=== PATIENT | female | born 1975 | race Caucasian/White ===

== ENCOUNTER 2017-11-30 10:21 | Day surgery (SDC) | payer OTHER ==
[2017-11-28 13:13] VITALS: BMI 28.3
[2017-11-30 11:12] VITALS: RESP 16; TEMP 97.6
[2017-11-30] MEDS: LACTATED RINGERS 1,000 ML IV SCH ×2 (11:18→12:24)
[2017-11-30] MEDS ORDERED: PROPOFOL 10 MG/ML 20 ML VIAL IV ONE (12:24)
[2017-11-30] MEDS ORDERED: LIDOCAINE 1% INJ 10MG/ML (20 ML MDV) ONE (12:24)
[2017-11-30] MEDS ORDERED: GLYCOPYRROLATE 0.2 MG/ML 2 ML VIAL ONE (12:24)
[2017-11-30 13:31] VITALS: BP 105/69
[2017-11-30 13:45] VITALS: PULSE 76
--- NOTE | 2017-12-11 15:10 | P.PCN ---
Date of Procedure: 11/30/17 Procedure(s) Performed: Procedures: 1. Esophagogastroduodenoscopy and biopsy. 2. Colonoscopy and biopsy and polypectomy. Preoperative diagnosis: Abdominal pain and rectal bleeding. Postoperative diagnosis: 1. Very small sliding hiatal hernia with no obvious esophagitis or complicated reflux disease. 2. Mild gastritis. 3. Multiple biopsies obtained from the duodenum, antrum and esophagus. 4. Sigmoid polyps snared, biopsied and spot injected to localize. Preparation: HalfLytely prep. Sedation: Was provided by anesthesia. Brief clinical history: The patient is a 42-year-old female who is scheduled for this evaluation because of abdominal pain and rectal bleeding. The purposes to rule out peptic ulcer disease or neoplasia. Procedure: With the patient on her left lateral decubitus position and after informed consent and adequate sedation, I passed the Olympus-GIF 160 video upper endoscope through the cricopharyngeus down the esophagus. There was a very small sliding hiatal hernia but no obvious esophagitis or complicated reflux disease. The endoscope was then passed into the stomach which was insufflated with air and inspected in detail including the retroflex view in the cardia. There was some mottling and erythema in the antrum but no ulcers or erosions. Pyloric channel, duodenal bulb, post bulbar area and descending duodenum appeared within normal limits. I obtained biopsies from the duodenum, antrum and esophagus then the endoscope was withdrawn and I proceeded with the colonoscopy. Perianal area did not show any fissures or fistulas. There were no masses felt on digital rectal examination. The Olympus CFQ 160L video colonoscope was then inserted in the rectum in the usual fashion and advanced to the cecum. There was a fleshy polyp in the sigmoid measuring around 2 cm on a short stalk that I biopsied initially, then I snared and retrieved by suctioning it to the tip of the endoscope and withdrawing the endoscope and restarting the exam. I localized the site by injecting spot in the usual fashion. The patient tolerated the procedure well and did not have any meat complications. Plan: We will await pathology results and make further plans based on her course and biopsy results.
== END 2017-11-30 13:50 | disposition home or self-care (01) ==
LOC: ORWHC2ENDO 10:21
DX: K29.50 Unspecified chronic gastritis without bleeding (principal); D12.5 Benign neoplasm of sigmoid colon; K62.5 Hemorrhage of anus and rectum; K44.9 Diaphragmatic hernia without obstruction or gangrene; K20.9 Esophagitis, unspecified; J45.909 Unspecified asthma, uncomplicated; Z79.899 Other long term (current) drug therapy; Z87.442 Personal history of urinary calculi; G43.909 Migraine, unspecified, not intractable, without status migrainosus
CPT/HCPCS: 81025; 88305; 45380; 45385; 43239; 45381; J2001; J2704

== ENCOUNTER 2018-01-04 06:16 | Inpatient (IN) | payer OTHER ==
[2017-12-27 16:05] VITALS: BMI 27.3
[~2018-01-04 06:16] MED LIST: DEXAMETHASONE SOD PHOSPHATE 10 MG/ML 1 ML VIAL IV ONE; HEPARIN SODIUM,PORCINE 5,000 UNIT/ML 1 ML VIAL SQ ONE; HYDROmorphone 1 MG/ML 1 ML SYRINGE IVP PRN; LIDOCAINE 1% 20 ML VIAL (10MG/ML) FOR IV START INTRADERMA PRN; MIDAZOLAM 2 MG/2 ML VIAL IV PRN; ONDANSETRON 4 MG/2 ML VIAL IVP ONE; fentaNYL (PF) 50 MCG/ML 2 ML AMP IV PRN
[2018-01-04] MEDS: LACTATED RINGERS 1,000 ML IV SCH (07:07)
[2018-01-04] MEDS ORDERED: fentaNYL (PF) 50 MCG/ML 2 ML AMP IVP ONE ×2 (07:18→09:30)
--- NOTE | 2018-01-04 07:51 | P.GSHP ---
History of Present Illness H&P Date: 01/04/18 Chief Complaint: Sigmoid colon polyp with high-grade dysplasia This is a 42-year-old female who presents today for low anterior section. Patient underwent colonoscopy by Dr. Thompson. Patient was found to have a sigmoid colon polyp with high-grade dysplasia. Patient presents today for low anterior resection. Patient with a risk of possible colostomy wound infection bleeding. The sigmoid colon was tattooed by Dr. Thompson at the time of her colonoscopy. Past Medical History Past Medical History: Asthma Additional Past Medical History / Comment(s): MIGRAINES, ASTHMA A CHILD, KIDNEY STONES., DIARRHEA FOR 1 1/2 YEARS, STATES BLOOD IN STOOL., STOMACH PAIN. , COLON POLYP (11/30/17) History of Any Multi-Drug Resistant Organisms: None Reported Additional Past Surgical History / Comment(s): KIDNEY STONES REMOVED., EGD & COLONOSCOPY Past Anesthesia/Blood Transfusion Reactions: No Reported Reaction, Motion Sickness Past Psychological History: No Psychological Hx Reported Smoking Status: Never smoker Past Alcohol Use History: Rare Past Drug Use History: None Reported - Past Family History Mother Family Medical History: No Reported History Medications and Allergies Home Medications Medication Instructions Recorded Confirmed Type Ibuprofen [Motrin] 800 mg PO TID PRN 11/28/17 12/27/17 History Magnesium Oxide 400 mg PO DAILY 11/28/17 01/04/18 History Promethazine [Phenergan] 25 mg PO DIRECTED PRN 11/28/17 01/04/18 History Topiramate [Topamax] 200 mg PO BID 11/28/17 12/27/17 History Butalb/APAP/Caff 50-325-40Mg 2 tab PO Q4H PRN 11/30/17 01/04/18 History [Fioricet 50-325-40] Potassium Chloride [K-Tab ER] 10 meq PO DAILY 11/30/17 01/04/18 History SUMAtriptan SUCC/NAPROXEN SOD 1 each PO DAILY PRN 11/30/17 01/04/18 History [Treximet 85-500 mg Tablet] Allergies Allergy/AdvReac Type Severity Reaction Status Date / Time No Known Allergies Allergy Verified 12/27/17 15:54 Surgical - Exam Vital Signs Temp Pulse Resp BP Pulse Ox 98.3 F 80 18 102/64 96 01/04/18 06:54 01/04/18 06:54 01/04/18 06:54 01/04/18 06:54 01/04/18 06:54 - General well developed, no distress - Eyes PERRL - ENT normal pinna - Neck no masses - Respiratory normal expansion - Cardiovascular Rhythm: regular - Abdomen Abdomen: soft, non tender Assessment and Plan Assessment: Sigmoid colon polyp with high-grade dysplasia. We'll perform low anterior resection.
[2018-01-04] MEDS ORDERED: SUCCINYLCHOLINE CHLORIDE 100 MG/5 ML SYR IV ONE (07:55)
[2018-01-04] MEDS ORDERED: NEOSTIGMINE 1 MG/ML 10 ML VIAL ONE (07:55)
[2018-01-04] MEDS ORDERED: fentaNYL (PF) 50 MCG/ML 2 ML AMP ONE (07:55)
[2018-01-04] MEDS ORDERED: PROPOFOL 10 MG/ML 20 ML VIAL IV ONE (07:55)
[2018-01-04] MEDS ORDERED: GLYCOPYRROLATE 0.2 MG/ML 2 ML VIAL ONE (07:55)
[2018-01-04] MEDS ORDERED: ROCURONIUM BROMIDE 10 MG/ML 10 ML VIAL IV ONE (07:55)
[2018-01-04] MEDS ORDERED: MIDAZOLAM 2 MG/2 ML VIAL ONE (07:55)
[2018-01-04] MEDS ORDERED: HYDROmorphone (PF) 1 MG/ML ONE (07:55)
[2018-01-04] MEDS ORDERED: NALOXONE 0.4 MG/ML 1 ML VIAL IV PRN (08:06)
[2018-01-04] MEDS: ceFAZolin IN SWFI 2 GM/20 ML SYRINGE IVP ONE ×2 (08:08→08:34)
[2018-01-04] MEDS: metroNIDAZOLE-NS PMX 500 MG in SALINE 1 100ML.BAG IVPB ONE ×2 (08:15→08:34)
[2018-01-04] MEDS ORDERED: LACTATED RINGERS 1,000 ML IV ONE ×3 (09:26→09:50)
[2018-01-04] MEDS: ROPIVACAINE 400 MG, HYDROMORPHONE (PF) 5 MG in SODIUM CHLORIDE 0.9% 170 ML EPIDURAL PRN ×2 (09:49→10:57)
[2018-01-04] MEDS ORDERED: ONDANSETRON 4 MG/2 ML VIAL IVP ONE (10:04)
[2018-01-04] MEDS: NALBUPHINE 10 MG/ML VIAL (10ML MDV) IV PRN ×3 (10:40→20:09)
[2018-01-04] MEDS ORDERED: BENZOCAINE/MENTHOL LOZENG 1 EACH LOZENGE MUCOUS MEM PRN (12:23)
[2018-01-04] MEDS ORDERED: METOCLOPRAMIDE 5 MG/ML 2 ML VIAL IVP PRN (12:23)
[2018-01-04] MEDS: ONDANSETRON 4 MG/2 ML VIAL IVP PRN (13:23)
[2018-01-04] MEDS: D5-0.45% NACL WITH KCL 20MEQ/L 1,000 ML IV SCH (15:40)
[2018-01-04] MEDS: HEPARIN SODIUM,PORCINE 5,000 UNIT/ML 1 ML VIAL SQ SCH (16:35)
[2018-01-04] MEDS: diphenhydrAMINE 50 MG/ML 1 ML VIAL IVP PRN (18:00)
[2018-01-04] MEDS: FAMOTIDINE 20 MG/2 ML VIAL IV SCH (20:12)
[2018-01-05] MEDS: D5-0.45% NACL WITH KCL 20MEQ/L 1,000 ML IV SCH ×4 (00:32→16:39)
[2018-01-05] MEDS: NALBUPHINE 10 MG/ML VIAL (10ML MDV) IV PRN ×2 (00:44→07:39)
[2018-01-05] MEDS: HEPARIN SODIUM,PORCINE 5,000 UNIT/ML 1 ML VIAL SQ SCH ×3 (00:49→15:23)
[2018-01-05] MEDS: diphenhydrAMINE 50 MG/ML 1 ML VIAL IVP PRN (02:07)
[2018-01-05] MEDS ORDERED: HYDROmorphone 2 MG TAB PO PRN (04:01)
[2018-01-05] MEDS ORDERED: HYDROmorphone 1 MG/ML 1 ML SYRINGE IVP PRN (04:07)
[2018-01-05] MEDS: LACTATED RINGERS 1,000 ML IV SCH (04:47)
[2018-01-05] MEDS ORDERED: HYDROmorphone 1 MG/ML 1 ML SYRINGE IM PRN (05:31)
--- NOTE | 2018-01-05 05:37 | P.PN ---
Progress Note - Text Progress Note Date: 01/05/18 Postoperative day # status post low anterior resection ,epidural catheter placed for postoperative analgesia, patient doing well epidural site okay, patient currently on combination of epidural infusion solution of Ropivacaine 0.0625% and Dilaudid 20 g per mL the infusion rate at 8 ml per hour , patient had no motor deficit epidural site okay , vital signs stable ,VAS 4/10 , she is receiving Dilaudid 0.5 mg for breakthrough pain every 1 hour when necessary Assessment and plan= post operative day #1 patient doing well ,pain well controlled , there is no anesthesia related complications
[2018-01-05] MEDS: FAMOTIDINE 20 MG/2 ML VIAL IV SCH ×2 (07:38→20:13)
[2018-01-05] MEDS: ALVIMOPAN 12 MG CAPSULE PO SCH ×2 (07:38→20:13)
[2018-01-05] MEDS: ONDANSETRON 4 MG/2 ML VIAL IVP PRN (08:37)
[2018-01-05] MEDS: HYDROmorphone 1 MG/ML 1 ML SYRINGE IVP PRN ×3 (09:00→20:13)
--- NOTE | 2018-01-05 13:35 | P.PN ---
Subjective Progress Note Date: 01/05/18 42-year-old seen in a postop visit January 05 underwent low anterior resection for sigmoid colon polyp with high-grade dysplasia currently is seen this morning sitting up in chair. Epidural in place patient states pain medication effective for pain control. Reports of nausea vomiting. Tolerating clear liquid diet. Passing no gas no stool prevena wound system in place Objective - Vital Signs Vital signs: Vital Signs Temp 98.6 F 01/05/18 07:17 Pulse 84 01/05/18 07:17 Resp 12 01/05/18 07:17 BP 92/58 01/05/18 07:17 Pulse Ox 95 01/05/18 07:17 Intake & Output 01/04/18 01/05/18 01/05/18 18:59 06:59 18:59 Intake Total 2879.5 1590 Output Total 265 2100 Balance 2614.5 -510 Weight 63.503 kg 63.503 kg Intake: IV 2879.5 Intake, IV Titration 1000 Amount D5-0.45% NaCl with KCl 1000 20Meq/l 1,000 ml @ 125 mls/hr IV .Q8H [facility] Rx#: [id number] Oral 590 Output: Urine 215 2100 Estimated Blood Loss 50 Other: Voiding Method Indwelling Catheter Indwelling Catheter - Exam Physical exam 42-year-old female sitting up in a chair appears in no acute distress Lungs adequate air movement bilaterally on room air Heart S1 and S2 audible regular Abdomen surgical tenderness appropriate not distended few hypoactive bowel tones indwelling Pina catheter in place no nausea no vomiting states not passing gas reports prevena wound system in place Extremities no edema Assessment and Plan Assessment: Impression Recent colonoscopy found to have a sigmoid colon polyp with high-grade dysplasia Postoperative low anterior resection January 04 for a sigmoid colon polyp Plan Continue postop surgical care Epidural per anesthesia for pain control Keep indwelling Pina catheter in place until epidural DC'd DVT and GI prophylaxis Clear liquid diet as tolerated Increase activity as tolerated Use of incentive spirometer Follow-up on path report The above impression and plan of care have been discussed and directed by signing physician. Zayda Mann nurse practitioner acting as scribe for signing physician.
[2018-01-05] MEDS: diphenhydrAMINE 25 MG CAP PO PRN (15:49)
[2018-01-06] MEDS: HEPARIN SODIUM,PORCINE 5,000 UNIT/ML 1 ML VIAL SQ SCH ×4 (00:09→23:09)
[2018-01-06] MEDS: diphenhydrAMINE 25 MG CAP PO PRN ×2 (00:09→15:40)
[2018-01-06] MEDS: ROPIVACAINE 400 MG, HYDROMORPHONE (PF) 5 MG in SODIUM CHLORIDE 0.9% 170 ML EPIDURAL PRN (01:28)
[2018-01-06] MEDS: D5-0.45% NACL WITH KCL 20MEQ/L 1,000 ML IV SCH ×3 (06:27→18:16)
[2018-01-06 07:38] LABS: Basophils % (A) 0 %; Eosinophils # (A) 0.1 k/uL (0-0.7); Eosinophils % (A) 1 %; HCT 39.6 % (34.0-46.0); HGB 13.1 gm/dL (11.4-16.0); Lymphocytes # (A) 2.5 k/uL (1.0-4.8); Lymphocytes % (A) 31 %; MCH 31.2 pg (25.0-35.0); MCHC 33.1 g/dL (31.0-37.0); MCV 94.4 fL (80.0-100.0); Mean Platelet Volume 6.6; Monocytes # (A) 0.6 k/uL (0-1.0); Monocytes % (A) 7 %; Neutrophils # (A) 4.6 k/uL (1.3-7.7); Neutrophils % (A) 58 %; Platelet Count 230 k/uL (150-450); WBC 7.9 k/uL (3.8-10.6)
[2018-01-06 07:53] LABS: ALT 28 U/L (9-52); AST 33 U/L (14-36); Albumin 3.3 g/dL (3.5-5.0); Alkaline Phosphatase 76 U/L (38-126); Anion Gap 5 mmol/L; Blood Urea Nitrogen 5 mg/dL (7-17); Carbon Dioxide 28 mmol/L (22-30); Chloride 105 mmol/L (98-107); Glucose 105 mg/dL (74-99); Potassium 4.4 mmol/L (3.5-5.1); Sodium 138 mmol/L (137-145); Total Bilirubin 0.4 mg/dL (0.2-1.3)
[2018-01-06] MEDS: FAMOTIDINE 20 MG/2 ML VIAL IV SCH ×2 (09:40→20:48)
[2018-01-06] MEDS: ALVIMOPAN 12 MG CAPSULE PO SCH ×2 (09:41→20:48)
--- NOTE | 2018-01-06 16:41 | P.PN ---
Subjective Progress Note Date: 01/06/18 CHIEF COMPLAINT: Status post low anterior resection HISTORY OF PRESENT ILLNESS: The patient is a 42-year-old female status post low anterior resection. She is postop day 2. She is tolerating liquids. She reports mechanical difficulties with her epidural which had leaked last night and this morning. Her pain is not well controlled. She is passing flatus. No bowel movements. PHYSICAL EXAM: GENERAL: Well-developed in no acute distress. HEENT: No sclera icterus. Extraocular movements grossly intact. Moist buccal mucosa. Head is atraumatic, normocephalic. Hears conversational speech. No nasal drainage. NECK: Supple without lymphadenopathy. CHEST: Non-labored respirations and equal bilateral excursions. CARDIOVASCULAR: 2+ radial pulses. Regular rate and regular rhythm ABDOMEN: Dressing clean dry and intact with wound VAC. No signs of infection. MUSCULOSKELETAL: No clubbing, cyanosis or edema. NEUROLOGIC: No focal or lateralizing signs. Cranial nerves II through XII grossly intact. PSYCH: Alert and oriented to person, place and time. SKIN: Well perfused. Good skin turgor. LABS: Reviewed ASSESSMENT: 1. Status post low anterior resection 2. Malignant colon polyp PLAN: 1. Recommend adjustment of epidural. 2. Pina catheter still present for epidural protocol 3. Start oral pain medications. 4. Advance diet Objective - Vital Signs Vital signs: Vital Signs Temp 98.2 F 01/06/18 08:40 Pulse 80 01/06/18 13:29 Resp 16 01/06/18 08:40 BP 105/70 01/06/18 13:29 Pulse Ox 94 L 01/06/18 08:47 Intake & Output 01/05/18 01/06/18 01/06/18 18:59 06:59 18:59 Intake Total 120 1574.167 110.167 Output Total 900 1500 Balance 120 674.167 -1389.833 Weight 63.503 kg Intake: Intake, IV Titration 1574.167 60.167 Amount D5-0.45% NaCl with KCl 1500 20Meq/l 1,000 ml @ 125 mls/hr IV .Q8H [facility] Rx#: [id number] Ropivacaine 400 mg 74.167 60.167 Hydromorphone (Pf) 5 mg In Sodium Chloride 0.9% 170 ml @ Per Protocol EPIDURAL .Q0M PRN Rx#: [id number] Oral 120 50 Output: Urine 900 1500 Uretheral (Pina) 1500 Other: Voiding Method Indwelling Catheter Indwelling Catheter Indwelling Catheter - Labs CBC & Chem 7: 01/06/18 07:17 01/06/18 07:17 Labs: Abnormal Lab Results - Last 24 Hours (Table) 01/06/18 Range/Units 07:17 BUN 5 L (7-17) mg/dL Glucose 105 H (74-99) mg/dL Total Protein 6.0 L (6.3-8.2) g/dL Albumin 3.3 L (3.5-5.0) g/dL Assessment and Plan (1) Dysplastic colon polyp Current Visit: Yes Status: Acute Code(s): K63.5 - POLYP OF COLON SNOMED Code(s): 299189364 (2) S/P colon resection Current Visit: Yes Status: Acute Code(s): Z90.49 - ACQUIRED ABSENCE OF OTHER SPECIFIED PARTS OF DIGESTIVE TRACT SNOMED Code(s): 445879557
--- NOTE | 2018-01-06 17:48 | P.PN ---
Progress Note - Text 01/06 3992 42-year-old female status post low anterior resection by Dr. mondragon, patient has an epidural catheter for postop pain control with the solution running at 6 mL an hour. I was called earlier in the day by the nurse the question about leaking epidural. I examined the patient and the dressing site and detected no leak. Patient has a VAS of 5 with no motor or sensory deficits. I asked her nurse to increase the infusion rate to 8 mL an hour. Plan to continue epidural infusion
[2018-01-07] MEDS: D5-0.45% NACL WITH KCL 20MEQ/L 1,000 ML IV SCH ×3 (01:40→22:01)
[2018-01-07] MEDS: FAMOTIDINE 20 MG/2 ML VIAL IV SCH ×2 (07:55→20:56)
[2018-01-07] MEDS: ALVIMOPAN 12 MG CAPSULE PO SCH ×2 (07:55→20:56)
[2018-01-07] MEDS: HEPARIN SODIUM,PORCINE 5,000 UNIT/ML 1 ML VIAL SQ SCH ×3 (07:55→23:22)
[2018-01-07] MEDS: HYDROcodone/APAP 5-325MG 1 EACH TAB PO PRN ×2 (13:24→19:01)
--- NOTE | 2018-01-07 13:30 | P.PN ---
Subjective Progress Note Date: 01/07/18 CHIEF COMPLAINT: Status post low anterior resection HISTORY OF PRESENT ILLNESS: The patient is a 42-year-old female status post low anterior resection. She is postop day 3. She is tolerating diet. She reports having blood with her stools including having blood running down her leg upon walking. Her pain is much better controlled today. She is tolerating oral pain meds. PHYSICAL EXAM: GENERAL: Well-developed in no acute distress. HEENT: No sclera icterus. Extraocular movements grossly intact. Moist buccal mucosa. Head is atraumatic, normocephalic. Hears conversational speech. No nasal drainage. NECK: Supple without lymphadenopathy. CHEST: Non-labored respirations and equal bilateral excursions. CARDIOVASCULAR: 2+ radial pulses. Regular rate and regular rhythm ABDOMEN: Dressing clean dry and intact with wound VAC. No signs of infection. MUSCULOSKELETAL: No clubbing, cyanosis or edema. NEUROLOGIC: No focal or lateralizing signs. Cranial nerves II through XII grossly intact. PSYCH: Alert and oriented to person, place and time. SKIN: Well perfused. Good skin turgor. LABS: Reviewed ASSESSMENT: 1. Status post low anterior resection 2. Malignant colon polyp PLAN: 1. Advance diet. 2. Epidural protocol per anesthesia. 3. Discontinue Pina at earliest 6 hours after epidural 4. Continue abdominal wound VAC Objective - Vital Signs Vital signs: Vital Signs Temp 97.9 F 01/07/18 10:30 Pulse 81 01/07/18 10:36 Resp 16 01/07/18 07:51 BP 118/87 01/07/18 10:30 Pulse Ox 95 01/07/18 10:36 Intake & Output 01/06/18 01/07/18 01/07/18 18:59 06:59 18:59 Intake Total 110.167 238 Output Total 1500 1400 1400 Balance -1389.833 -1400 -1162 Intake: Intake, IV Titration 60.167 Amount Ropivacaine 400 mg 60.167 Hydromorphone (Pf) 5 mg In Sodium Chloride 0.9% 170 ml @ Per Protocol EPIDURAL .Q0M PRN Rx#: [id number] Oral 50 238 Output: Urine 1500 1400 1400 Uretheral (Pina) 1500 1400 Other: Voiding Method Indwelling Catheter Indwelling Catheter - Labs CBC & Chem 7: 01/06/18 07:17 01/06/18 07:17 Assessment and Plan (1) Dysplastic colon polyp Current Visit: Yes Status: Acute Code(s): K63.5 - POLYP OF COLON SNOMED Code(s): 998918680 (2) S/P colon resection Current Visit: Yes Status: Acute Code(s): Z90.49 - ACQUIRED ABSENCE OF OTHER SPECIFIED PARTS OF DIGESTIVE TRACT SNOMED Code(s): 718680789
[2018-01-07] MEDS: HYDROmorphone 1 MG/ML 1 ML SYRINGE IVP PRN (15:55)
--- NOTE | 2018-01-07 19:15 | P.PN ---
Progress Note - Text 01/07 841 42-year-old female status post exploratory lap. Patient has epidural solution running at 6 mL an hour with a VAS of 2. Doing well and very comfortable. Epidural DC'd
[2018-01-08 07:18] VITALS: BP 106/70; PULSE 79; RESP 18; TEMP 98.3
[2018-01-08] MEDS: HEPARIN SODIUM,PORCINE 5,000 UNIT/ML 1 ML VIAL SQ SCH ×2 (07:45→16:03)
[2018-01-08] MEDS: FAMOTIDINE 20 MG/2 ML VIAL IV SCH (07:45)
[2018-01-08] MEDS: HYDROcodone/APAP 5-325MG 1 EACH TAB PO PRN ×2 (07:45→12:21)
[2018-01-08] MEDS: ALVIMOPAN 12 MG CAPSULE PO SCH (07:45)
[2018-01-08] MEDS: D5-0.45% NACL WITH KCL 20MEQ/L 1,000 ML IV SCH ×2 (07:53→12:04)
--- NOTE | 2018-01-08 13:14 | P.DS ---
Providers Date of admission: 01/04/18 06:16 Expected date of discharge: 01/08/18 Attending physician: Campbell Villalta Consults: 01/04/18 12:23 Consult Physician Routine Consulting Provider: Remy Pérez Consult Reason/Comments: med manage Do you want consulting provider notified?: Yes Primary care physician: [facility] Course: 42-year-old female presented to undergo a low anterior resection. Patient underwent a colonoscopy by Dr. Thompson was found to have a sigmoid colon polyp with high-grade dysplasia. Underwent January 05 low anterior resection for sigmoid colon polyp with high-grade dysplasia Postop no events. Patient's pain medication effective for pain control surgical dressing site dry prevena system in place at the time of discharge patient was anxious to be discharged home up ambulating in the hallway tolerating a diet Impression Recent colonoscopy found to have a sigmoid colon polyp with high-grade dysplasia Postoperative low anterior resection January 04 for a sigmoid malignant colon polyp Plan - Discharge Summary Discharge Rx Participant: No New Discharge Prescriptions: New Docusate [Colace] 100 mg PO BID #20 capsule HYDROcodone/APAP 7.5-325MG [[place] 7.5-325] 1 tab PO Q4H PRN 3 Days #18 tab PRN Reason: Pain No Action Magnesium Oxide 400 mg PO DAILY Topiramate [Topamax] 200 mg PO BID Promethazine [Phenergan] 25 mg PO DIRECTED PRN PRN Reason: Nausea Ibuprofen [Motrin] 800 mg PO TID PRN PRN Reason: Migraine Headache Potassium Chloride [K-Tab ER] 10 meq PO DAILY Butalb/APAP/Caff 50-325-40Mg [Fioricet 50-325-40] 2 tab PO Q4H PRN PRN Reason: Pain SUMAtriptan SUCC/NAPROXEN SOD [Treximet 85-500 mg Tablet] 1 each PO DAILY PRN PRN Reason: migraines Discharge Medication List Ibuprofen [Motrin] 800 mg PO TID PRN 11/28/17 [History] Magnesium Oxide 400 mg PO DAILY 11/28/17 [History] Promethazine [Phenergan] 25 mg PO DIRECTED PRN 11/28/17 [History] Topiramate [Topamax] 200 mg PO BID 11/28/17 [History] Butalb/APAP/Caff 50-325-40Mg [Fioricet 50-325-40] 2 tab PO Q4H PRN 11/30/17 [ History] Potassium Chloride [K-Tab ER] 10 meq PO DAILY 11/30/17 [History] SUMAtriptan SUCC/NAPROXEN SOD [Treximet 85-500 mg Tablet] 1 each PO DAILY PRN [History] Docusate [Colace] 100 mg PO BID #20 capsule 01/05/18 [Rx] HYDROcodone/APAP 7.5-325MG [[place] 7.5-325] 1 tab PO Q4H PRN 3 Days #18 tab 01/05 [Rx] Follow up Appointment(s)/Referral(s): Campbell Villalta MD [STAFF PHYSICIAN] - 1 Week Activity/Diet/Wound Care/Special Instructions: No tub bath for six weeks. Shower daily. No lifting over 10 pounds for the next 2 weeks. prevena wound system to be removed May use ice packs to surgical site. No driving while taking narcotic for pain. Cover surgical incision with dressings Discharge Disposition: HOME SELF-CARE
--- NOTE | 2018-02-04 13:22 | P.OP ---
Date of Procedure: 01/04/18 Preoperative Diagnosis: colon cancer Postoperative Diagnosis: defer to pathology Procedure(s) Performed: low anterior resection Anesthesia: GETA Surgeon: Campbell Villalta Estimated Blood Loss (ml): 5 Pathology: other (sigmoid colon)
--- NOTE | 2018-02-04 13:24 | P.OP ---
Date of Procedure: 01/04/18 Preoperative Diagnosis: Colon cancer Postoperative Diagnosis: Defer to pathology Procedure(s) Performed: Low anterior resection Anesthesia: DALIAA Surgeon: Campbell Villalta Estimated Blood Loss (ml): 20 Pathology: other (Sigmoid colon/rectum) Condition: stable Disposition: PACU Description of Procedure: DESCRIPTION OF PROCEDURE: The patient was placed on the operating table in the supine position. Patient received a general anesthesia. Patient was then placed in the dorsal lithotomy position. The patients abdomen was prepped and draped in the usual sterile fashion. Through a low midline incision, the abdomen was entered. The Romana retractor was placed in the wound. The stomach appeared normal. The small bowel appeared normal. The liver appeared normal. The right colon and transverse colon appeared normal. On the left colon, there was an extensive diverticulosis noted. The sigmoid colon was then mobilized by dividing the white line of Toldt with electrocautery. At this point, the proximal sigmoid colon was transected with a GI stapler after a window had been made in the mesentery. The distal sigmoid colon was then dissected. Mesentery was taken down between Daysi clamps and ligated with #0 silk ties. At a point beyond the lesion, the bowel was then transected with a Proximate stapler. This was then removed. The splenic flexure was then taken down in order to provide adequate lengthening of the sigmoid colon. At this point, the auto purse-string suture device was placed across the proximal colon and fired. The colon was then opened. The 29 mm EEA anvil was then placed into the colon and then the purse- string was secured. The EEA stapler device was then placed in the patient s anus and passed into the rectum. The nail for the EEA was then brought out through the distal rectum and then attached to the anvil. The EEA stapler device was then fired. The anastomosis was inspected. There were 2 good donuts of tissue removed from the EEA stapler. The anastomosis was then tested under water and there was no air leak seen. At this point the abdomen was then irrigated. There was no bleeding seen. The fascia was then closed with double stranded #1 PDS. The skin was closed with mitzy. The patient tolerated the procedure well.
== END 2018-01-08 16:25 | disposition home or self-care (01) | DRG 331 ==
LOC: 2ORMAIN 06:16 → 4SSUR 09:44
PROVIDERS: ADMIT Surgery; ATTEND Surgery
PROC: 0DBN0ZZ Excision of Sigmoid Colon, Open Approach (ICD-10-PCS; principal; 2018-01-04 08:00)
DX: D12.5 Benign neoplasm of sigmoid colon (principal); G43.909 Migraine, unspecified, not intractable, without status migrainosus; R11.2 Nausea with vomiting, unspecified; Z87.442 Personal history of urinary calculi; Z79.899 Other long term (current) drug therapy; K57.30 Diverticulosis of large intestine without perforation or abscess without bleeding
CPT/HCPCS: 80053; 81025; 85025; 86850; 86900; 86901; 88309

== ENCOUNTER 2018-12-31 09:05 | Day surgery (SDC) | payer OTHER ==
[2018-12-27 10:53] VITALS: BMI 26.4
[~2018-12-31 09:05] MED LIST changes: -DEXAMETHASONE SOD PHOSPHATE 10 MG/ML 1 ML VIAL IV ONE; -HEPARIN SODIUM,PORCINE 5,000 UNIT/ML 1 ML VIAL SQ ONE; -HYDROmorphone 1 MG/ML 1 ML SYRINGE IVP PRN; +LACTATED RINGERS 1,000 ML IV SCH; -MIDAZOLAM 2 MG/2 ML VIAL IV PRN; -ONDANSETRON 4 MG/2 ML VIAL IVP ONE; -fentaNYL (PF) 50 MCG/ML 2 ML AMP IV PRN
[2018-12-31 09:20] VITALS: TEMP 97.5
[2018-12-31] MEDS ORDERED: PROPOFOL 10 MG/ML 20 ML VIAL IV ONE (10:26)
--- NOTE | 2018-12-31 10:34 | P.GSHP ---
History of Present Illness H&P Date: 12/31/18 Chief Complaint: History of colon Cancer This a 43-year-old female who's. History of colon cancer. Patient presents today for colonoscopy. She denies any significant GI complaints. Past Medical History Past Medical History: Asthma, Cancer, Osteoarthritis (OA) Additional Past Medical History / Comment(s): MIGRAINES, ASTHMA A CHILD, KIDNEY STONES., History of Any Multi-Drug Resistant Organisms: None Reported Past Surgical History: Bowel Resection Additional Past Surgical History / Comment(s): KIDNEY STONES REMOVED. COLONOSCOP Y, Past Anesthesia/Blood Transfusion Reactions: No Reported Reaction, Motion Sickness Smoking Status: Never smoker - Past Family History Mother Family Medical History: No Reported History Daughter(s) Additional Family Medical History / Comment(s): SVT, migraines Medications and Allergies Home Medications Medication Instructions Recorded Confirmed Type Ibuprofen [Motrin] 800 mg PO TID PRN 11/28/17 12/27/18 History Magnesium Oxide 400 mg PO DAILY 11/28/17 12/27/18 History Promethazine [Phenergan] 25 mg PO Q4-6H PRN 11/28/17 12/27/18 History Topiramate [Topamax] 200 mg PO BID 11/28/17 12/27/18 History Butalb/APAP/Caff 50-325-40Mg 2 tab PO Q4H PRN 11/30/17 12/31/18 History [Fioricet 50-325-40] Potassium Chloride [K-Tab ER] 10 meq PO DAILY 11/30/17 12/27/18 History SUMAtriptan SUCC/NAPROXEN SOD 1 each PO DAILY PRN 11/30/17 12/27/18 History [Treximet 85-500 mg Tablet] Hydrochlorothiazide [Hydrodiuril] 50 mg PO DAILY 12/27/18 12/31/18 History Allergies Allergy/AdvReac Type Severity Reaction Status Date / Time No Known Allergies Allergy Verified 12/31/18 09:16 Surgical - Exam Vital Signs Temp Pulse Resp BP Pulse Ox 97.5 F L 79 17 114/62 95 12/31/18 09:19 12/31/18 09:19 12/31/18 09:19 12/31/18 09:19 12/31/18 09:19 - General no distress - Eyes PERRL - ENT normal pinna - Neck no masses - Respiratory normal expansion - Cardiovascular Rhythm: regular - Abdomen Abdomen: soft, non tender Assessment and Plan Assessment: History of colon cancer. We'll perform colonoscopy.
--- NOTE | 2018-12-31 10:48 | P.OP ---
Date of Procedure: 12/31/18 Preoperative Diagnosis: History of colon cancer Postoperative Diagnosis: External hemorrhoids Sigmoid colon polyp Procedure(s) Performed: Colonoscopy Anesthesia: MAC Surgeon: Campbell Villalta Pathology: other (Sigmoid colon polyp) Condition: stable Disposition: PACU Description of Procedure: The patient's placed on the endoscopy table in the lateral position. She received IV sedation. Digital rectal exam was performed which revealed external hemorrhoids. The flexible colonoscope was then placed patient anus passed throughout the entire colon. The ileocecal valve lesions. The cecum, ascending and transverse colon appeared normal. The descending colon appeared normal. In the proximal sigmoid colon there was another polyp seen this removed with snare. Scope was brought back the anastomosis visualized. There is known to bleeding scarring of the anastomosis. Scope summer back into the remaining rectum and this appeared normal. Scope was withdrawn for patient. The external hemorrhoids were visualized.
[2018-12-31] MEDS ORDERED: IV FLUID CONTINUATION 700 ML IV ONE (10:53)
[2018-12-31 10:55] VITALS: RESP 16
[2018-12-31 11:11] VITALS: BP 97/64; PULSE 72
== END 2018-12-31 11:39 | disposition home or self-care (01) ==
LOC: ORWHC2ENDO 09:05
PROVIDERS: ATTEND Surgery
DX: K63.5 Polyp of colon (principal); K64.4 Residual hemorrhoidal skin tags; Z85.038 Personal history of other malignant neoplasm of large intestine; J45.909 Unspecified asthma, uncomplicated; M19.90 Unspecified osteoarthritis, unspecified site; G43.909 Migraine, unspecified, not intractable, without status migrainosus; Z87.442 Personal history of urinary calculi; Z98.890 Other specified postprocedural states; Z90.49 Acquired absence of other specified parts of digestive tract; Z98.0 Intestinal bypass and anastomosis status; Z79.1 Long term (current) use of non-steroidal anti-inflammatories (NSAID); Z79.899 Other long term (current) drug therapy; Z82.49 Family history of ischemic heart disease and other diseases of the circulatory system; Z82.0 Family history of epilepsy and other diseases of the nervous system
CPT/HCPCS: 81025; 88305; 45385; J2704

== ENCOUNTER 2019-01-15 08:51 | Day surgery (SDC) | payer OTHER ==
[2019-01-10 11:15] VITALS: BMI 26.4
[~2019-01-15 08:51] MED LIST changes: +HEPARIN SODIUM,PORCINE 5,000 UNIT/ML 1 ML VIAL SQ ONE; -LACTATED RINGERS 1,000 ML IV SCH; -LIDOCAINE 1% 20 ML VIAL (10MG/ML) FOR IV START INTRADERMA PRN; +Pre Op ABX Message 1 EACH MISC MISCELLANE ONE
[2019-01-15] MEDS ORDERED: NA PHOS,M-B/NA PHOS,DI-BA 133 ML ENEMA RECTAL ONE (09:30)
[2019-01-15] MEDS ORDERED: ONDANSETRON 4 MG/2 ML VIAL IVP ONE (09:31)
[2019-01-15] MEDS ORDERED: DEXAMETHASONE SOD PHOSPHATE 10 MG/ML 1 ML VIAL IV ONE (09:31)
[2019-01-15] MEDS ORDERED: LACTATED RINGERS 1,000 ML IV SCH (09:31)
[2019-01-15] MEDS ORDERED: LIDOCAINE 1% 20 ML VIAL (10MG/ML) FOR IV START INTRADERMA PRN (09:31)
[2019-01-15] MEDS ORDERED: HYDROmorphone 0.5 MG/0.5 ML SYRINGE IVP PRN (09:31)
[2019-01-15] MEDS ORDERED: SCOPOLAMINE 1.5MG/72HR PATCH TRANSDERM ONE (10:04)
--- NOTE | 2019-01-15 10:11 | P.GSHP ---
History of Present Illness H&P Date: 01/15/19 Chief Complaint: Hemorrhoids This a 43-year-old female with history of hemorrhoids. Patient issues with rectal pain and bleeding due to hemorrhoids. Patient presents today for hemorrhoidectomy. Past Medical History Past Medical History: Asthma, Cancer, Osteoarthritis (OA) Additional Past Medical History / Comment(s): MIGRAINES, ASTHMA A CHILD, KIDNEY STONES., past hx. colon cancer History of Any Multi-Drug Resistant Organisms: None Reported Past Surgical History: Bowel Resection Additional Past Surgical History / Comment(s): KIDNEY STONES REMOVED. COLONOSCOPY, Past Anesthesia/Blood Transfusion Reactions: No Reported Reaction, Motion Sickness Smoking Status: Never smoker - Past Family History Mother Family Medical History: No Reported History Daughter(s) Additional Family Medical History / Comment(s): SVT, migraines Medications and Allergies Home Medications Medication Instructions Recorded Confirmed Type Ibuprofen [Motrin] 800 mg PO TID PRN 11/28/17 01/15/19 History Magnesium Oxide 400 mg PO DAILY 11/28/17 01/15/19 History Promethazine [Phenergan] 25 mg PO Q4-6H PRN 11/28/17 01/15/19 History Topiramate [Topamax] 200 mg PO BID 11/28/17 01/15/19 History Butalb/APAP/Caff 50-325-40Mg 2 tab PO Q4H PRN 11/30/17 01/15/19 History [Fioricet 50-325-40] Potassium Chloride [K-Tab ER] 10 meq PO DAILY 11/30/17 01/15/19 History SUMAtriptan SUCC/NAPROXEN SOD 1 each PO DAILY PRN 11/30/17 01/15/19 History [Treximet 85-500 mg Tablet] Hydrochlorothiazide [Hydrodiuril] 50 mg PO DAILY 12/27/18 01/15/19 History Allergies Allergy/AdvReac Type Severity Reaction Status Date / Time No Known Allergies Allergy Verified 01/15/19 09:13 Surgical - Exam Vital Signs Temp Pulse Resp BP Pulse Ox 98.5 F 106 H 18 106/68 96 01/15/19 09:32 01/15/19 09:32 01/15/19 09:32 01/15/19 09:32 01/15/19 09:32 - General well developed, well nourished, no distress - Eyes PERRL - ENT normal pinna - Neck no masses - Respiratory normal expansion - Cardiovascular Rhythm: regular - Abdomen Abdomen: soft, non tender - Rectum Internal and external hemorrhoids Assessment and Plan Assessment: Hemorrhoids. We'll perform hemorrhoidectomy
[2019-01-15] MEDS ORDERED: PROPOFOL 10 MG/ML 20 ML VIAL IV ONE (10:21)
[2019-01-15] MEDS ORDERED: KETAMINE 10 MG/ML 20 ML VIAL ONE (10:21)
[2019-01-15] MEDS ORDERED: MIDAZOLAM 2 MG/2 ML VIAL ONE (10:21)
[2019-01-15] MEDS ORDERED: MIDAZOLAM 2 MG/2 ML VIAL IV ONE (10:25)
[2019-01-15] MEDS ORDERED: LIDOCAINE 1%-EPI 1:100,000 20 ML VIAL SQ ONE (10:51)
--- NOTE | 2019-01-15 10:58 | P.OP ---
Date of Procedure: 01/15/19 Preoperative Diagnosis: Internal and external hemorrhoids Postoperative Diagnosis: Internal and external hemorrhoids Procedure(s) Performed: Internal and external hemorrhoidectomy Anesthesia: MAC Surgeon: Campbell Villalta Estimated Blood Loss (ml): 5 Pathology: other (Internal and external hemorrhoids) Condition: stable Disposition: PACU Description of Procedure: The patient's placed on the operating table in the prone position he received she received IV sedation. Her anus was prepped and draped usual fashion. The anal speculum was placed and anus. Patient had an enlarged right posterior hemorrhoidal column there was also a large left lateral hemorrhoidal column. The right posterior hemorrhoidal column was grasped Allis clamps and using the Harmonic scissors the hemorrhoid was performed. The left lateral hemorrhoidal column was dissected in identical fashion. The anus was checked for hemostasis. There is no bleeding seen. A piece of Gelfoam was placed anus. Patient was sent to recovery room stable condition.
[2019-01-15 11:08] VITALS: TEMP 97.2
[2019-01-15 11:16] VITALS: RESP 16
[2019-01-15 12:12] VITALS: BP 108/60; PULSE 80
== END 2019-01-15 12:24 | disposition home or self-care (01) ==
LOC: OR 08:51
PROVIDERS: ATTEND Surgery
DX: K64.4 Residual hemorrhoidal skin tags (principal); K64.8 Other hemorrhoids; K64.5 Perianal venous thrombosis; G43.909 Migraine, unspecified, not intractable, without status migrainosus; J45.909 Unspecified asthma, uncomplicated; M19.90 Unspecified osteoarthritis, unspecified site; Z87.442 Personal history of urinary calculi; Z85.038 Personal history of other malignant neoplasm of large intestine; Z90.49 Acquired absence of other specified parts of digestive tract; Z98.890 Other specified postprocedural states; Z79.899 Other long term (current) drug therapy
CPT/HCPCS: 81025; 88304; 46260; J2250; J1644; J1100; J0690; J2405; J2704

== ENCOUNTER 2023-01-17 11:47 | Day surgery (SDC) | payer OTHER ==
[2023-01-11 15:14] VITALS: BMI 29.2
[~2023-01-17 11:47] MED LIST changes: -HEPARIN SODIUM,PORCINE 5,000 UNIT/ML 1 ML VIAL SQ ONE; +LACTATED RINGERS 1,000 ML IV SCH; -Pre Op ABX Message 1 EACH MISC MISCELLANE ONE
[2023-01-17] MEDS ORDERED: PROPOFOL 10 MG/ML 20 ML VIAL IV ONE (13:26)
[2023-01-17 13:37] VITALS: RESP 16; TEMP 97.2
--- NOTE | 2023-01-17 13:39 | P.PCN ---
Date of Procedure: 01/17/23 Procedure(s) Performed: BRIEF HISTORY: Patient is a 47-year-old pleasant white female scheduled for an elective colonoscopy as a part of evaluation of intermittent rectal bleeding for the last 1 month duration. She had low anterior resection performed in 2018 for now; polyp with high-grade dysplasia. PROCEDURE PERFORMED: Colonoscopy. PREOPERATIVE DIAGNOSIS: Intermittent rectal bleeding. IV sedation per Anesthesia. PROCEDURE: After informed consent was obtained, the patient, was brought into the endoscopy unit. IV sedation was administered by Anesthesia under continuous monitoring. Digital rectal examination was normal. Initially the Olympus CF-160 flexible video colonoscope was then inserted in the rectum, gradually advanced into the cecum without any difficulty. Careful examination was performed as the scope was gradually being withdrawn. Ileocecal valve and the appendiceal orifice were visualized and appeared normal. Prep was excellent. Mucosa of the cecum, ascending colon, transverse colon, descending colon, sigmoid colon, and rectum appeared normal. Anastomosis from previous surgery was located at 40 cm from the anal was there appeared normal. Retroflexion was performed in the rectum and no lesions were seen. The patient tolerated the procedure well. IMPRESSION: Normal-appearing colon from rectum to cecum with no evidence of colorectal neoplasia. Small internal hemorrhoids RECOMMENDATIONS: Findings of this examination were discussed with the patient as well as a family. She was advised to be a high-fiber diet and take Supplements a regular basis. Recommend repeat colonoscopy in 5 years..
[2023-01-17 14:08] VITALS: BP 98/64; PULSE 76
== END 2023-01-17 14:22 | disposition home or self-care (01) ==
LOC: ORWHC2ENDO 11:47
PROVIDERS: ATTEND Internal Medicine Gastroenterology
DX: K64.8 Other hemorrhoids (principal); K62.5 Hemorrhage of anus and rectum; G43.909 Migraine, unspecified, not intractable, without status migrainosus; J45.909 Unspecified asthma, uncomplicated; Z79.811 Long term (current) use of aromatase inhibitors; Z79.899 Other long term (current) drug therapy; Z98.890 Other specified postprocedural states; Z85.89 Personal history of malignant neoplasm of other organs and systems
CPT/HCPCS: 81025; 45378; J2704

== ENCOUNTER → 2024-05-28 | Outpatient (CLI) | payer OTHER ==
--- NOTE | 2024-05-28 14:23 | CT ---
EXAMINATION TYPE: CT abdomen pelvis wo con DATE OF EXAM: 05/28/2024 COMPARISON: None CLINICAL INDICATION: Female, 48 years old with history of R10.9 Unsp Abdominal pain; PHH, FLANK PAIN TECHNIQUE: CT scan of the abdomen and pelvis is performed without oral or IV contrast. CT DLP: 351.[address] CTDI: mGy Automated exposure control for dose reduction was used. Findings: The lungs are clear. Gallbladder is normal and there is no gallstone, wall thickening, pericholecystic fluid or distention . There is no biliary ductal dilatation. There is no organomegaly of the liver, pancreas, spleen or adrenal glands. There is a 7 mm nonobstructing left renal calcification. There are no right renal calcifications. The re is no hydronephrosis. The caliber of the abdominal aorta is normal and there is no retroperitoneal adenopathy or hemorrhage . The bowel loops are normal in caliber is no evidence of obstruction. No inflammatory changes are iden tified in the mesentery and there is no free intraperitoneal air or fluid. There are anastomotic sutu res in the rectosigmoid junction. There is no pelvic mass, free fluid, abscess or adenopathy. There is mild diverticulosis of the colon without CT evidence of diverticulitis. The osseous structures and soft tissues are unremarkable. IMPRESSION: 1. Nonobstructing 7 mm calcification of the left kidney. 2. No other significant abnormality seen within the abdomen or pelvis. [facility], , 05/28/2024 2:20 PM
== END | disposition home or self-care (01) ==
LOC: RADCTMAIN 11:37
PROVIDERS: ATTEND Family Medicine
DX: N28.89 Other specified disorders of kidney and ureter (principal)
CPT/HCPCS: 74176

== ENCOUNTER → 2024-07-05 | Outpatient (CLI) | payer OTHER ==
[2024-07-05 15:10] LABS: Basophils # (A) 0.04 X 10*3/uL (0.00-0.10); Basophils % (A) 0.4 %; Eosinophils # (A) 0.04 X 10*3/uL (0.04-0.35); Eosinophils % (A) 0.4 %; HCT 46.4 % (37.2-46.3); Lymphocytes # (A) 1.95 X 10*3/uL (0.90-5.00); Lymphocytes % (A) 17.6 %; MCHC 34.5 g/dL (32.0-37.0); MCV 92.8 FL (80.0-97.0); Mean Platelet Volume 9.6 FL (9.5-12.2); Monocytes # (A) 0.58 X 10*3/uL (0.20-1.00); Monocytes % (A) 5.2 %; NRBC Per 100 WBC 0 X 10*3/uL (0.00-0.01); Neutrophils # (A) 8.43 X 10*3/uL (1.80-7.70); Platelet Count 368 X 10*3/uL (140-440); WBC 11.08 X 10*3/uL (4.50-10.00)
[2024-07-05 15:22] LABS: Blood Urea Nitrogen 13.9 mg/dL (9.0-27.0); Carbon Dioxide 23.5 mmol/L (21.6-31.8); Chloride 103 mmol/L (96-109); Potassium 3.4 mmol/L (3.5-5.5); Sodium 137 mmol/L (135-145)
== END | disposition home or self-care (01) ==
LOC: LABWHC1 11:55
PROVIDERS: ATTEND Urology
DX: Z01.812 Encounter for preprocedural laboratory examination (principal); N20.0 Calculus of kidney
CPT/HCPCS: 36415; 80051; 82565; 84520; 85025

== ENCOUNTER 2024-07-08 06:10 | Day surgery (SDC) | payer OTHER ==
[2024-07-05 14:59] VITALS: BMI 25.4
--- NOTE | 2024-07-08 06:39 | XR ---
EXAMINATION TYPE: XR KUB DATE OF EXAM: 07/08/2024 6:19 AM CLINICAL INDICATION: Female, 48 years old with history of Kidney stones, pain TECHNIQUE: 1 view of the abdomen. COMPARISON: CT abdomen and pelvis May 28, 2024. FINDINGS: There is 9 mm calculus mid to lower pole level of left kidney redemonstrated at the level o f the L2-L3 disc space. No right-sided nephrolithiasis. Overall nonobstructive bowel gas pattern. Osseous structures are intact. IMPRESSION: As above. [facility], , 07/08/2024 6:37 AM
[2024-07-08 06:48] VITALS: TEMP 97.1
[2024-07-08] MEDS: LACTATED RINGERS 1,000 ML BAG IV STA (06:56)
[2024-07-08] MEDS: IV FLUID CONTINUATION 1,000 ML IV ONE (06:57)
[2024-07-08] MEDS ORDERED: fentaNYL (PF) 50 MCG/ML 2 ML AMP ONE (07:33)
[2024-07-08] MEDS ORDERED: PROPOFOL 10 MG/ML 20 ML VIAL IV ONE (07:33)
[2024-07-08] MEDS ORDERED: MIDAZOLAM 2 MG/2 ML VIAL ONE (07:33)
[2024-07-08] MEDS ORDERED: LIDOCAINE 1% INJ 10MG/ML (20 ML MDV) ONE (07:33)
[2024-07-08] MEDS ORDERED: ONDANSETRON 4 MG/2 ML VIAL ONE (07:33)
--- NOTE | 2024-07-08 08:03 | P.OP ---
Date of Procedure: 07/08/24 Preoperative Diagnosis: Left renal stone Postoperative Diagnosis: Same Procedure(s) Performed: ESW L left, 2500 shocks Anesthesia: MAC Surgeon: Matty Maldonado Estimated Blood Loss (ml): 0 Pathology: none sent Condition: stable Disposition: PACU Indications for Procedure: Patient is 48. She has a 7 mm left lower pole stone. She comes for shockwave lithotripsy alternatives have been discussed Description of Procedure: Patient given a sedative anesthetic. The stone was seen in 2 views of fluoroscopy. A total of 2500 shocks with the Pisa lith 3000 lithotripter was administered and the stone appears to fracture nicely. The patient is awakened returned recovery in good condition. To be discharged home upon recovery and follow in the office in 1 week with a KUB.
[2024-07-08 08:34] VITALS: BP 95/64; PULSE 65; RESP 16
== END 2024-07-08 08:48 | disposition home or self-care (01) ==
LOC: ORWHC2ENDO 06:10
PROVIDERS: ATTEND Urology
DX: N20.0 Calculus of kidney (principal); J45.909 Unspecified asthma, uncomplicated; G43.909 Migraine, unspecified, not intractable, without status migrainosus; Z86.0100 Personal history of colon polyps, unspecified; Z88.5 Allergy status to narcotic agent; Z79.02 Long term (current) use of antithrombotics/antiplatelets; Z79.899 Other long term (current) drug therapy
CPT/HCPCS: 74018; 50590; J2250; J2405; J2003; J3010; J2704